=== PATIENT | female | born 1985 | race Caucasian/White ===

== ENCOUNTER 2022-07-31 11:49 | Emergency (ER) | payer MEDICAID, SELFPAY ==
[2022-07-31 12:15] VITALS: BP 136/88; PULSE 71; RESP 16; TEMP 36.8; O2SAT 97; BMI 32.3
--- NOTE | 2022-07-31 13:04 | ED.ABDPAIN ---
HPI - Abdominal Pain General Date Seen: 07/31/22 Chief Complaint: Abdominal Pain Stated Complaint: Abdominal pain Time Seen by Provider: 07/31/22 11:54 Source: patient Mode of arrival: ambulatory Limitations: no limitations History of Present Illness HPI narrative: Patient is a 37-year-old female presents here with her sister for evaluation of abdominal pain she described initially in the epigastric region but now has gone to the her lower quadrants also, this came on after she had cowan eggs, she describes almost a cramping burning situation, she did try to go to the bathroom but this did not really help it. Denies any diarrhea there was some nausea but no vomiting common it has improved markedly since when this occurred. Approximately 4 hours ago. He has never before had this, she denies any dysuria frequency or any blood in her urine, she has not been constipated, and does not think she is . Denies no previous abdominal surgery there is no family history of issues took some activated charcoal at home, and this seemed to help it a little bit. MD elicited complaint: abdominal pain Pertinent past history: none Onset (ago): hour(s) Pain Consistency: intermittent and colicky Location: LLQ Severity: moderate Quality: cramping Migration to: no migration Exacerbating factors: eating Relieving factors: medication Associated symptoms: denies other symptoms Related Data Home Medications Medication Instructions Recorded Confirmed No Known Home Medications 07/31/22 07/31/22 Allergies Allergy/AdvReac Type Severity Reaction Status Date / Time No Known Drug Allergies Allergy Verified 07/31/22 12:19 Review of Systems Status of ROS Reports: 10 or more systems reviewed and unremarkable except as noted in History and below PFSH PFS Social History Smoking Status: Never smoker How often do you have a drink containing alcohol: monthly or less AUDIT-C Alcohol total score: 1 Non-prescribed substance use: denies use Exam Narrative: Exam Narrative: Patient is a very nice lady seen and stabilization room 2, she is in no apparent distress speaking to me normally appears to be in no pain. Pupils are equal round reactive to light there is no scleral icterus or redness TMs are normal, oropharynx normal, neck is supple full range of motion no meningismus, chest is clear heart sounds are normal, with no clicks murmurs or gallops, abdomen is soft there is no guarding no significant organomegaly, bowel sounds are normal, no CVA tenderness no hernias, she was all extremities independently well normal neurologic function. Const: Vital Signs, click to edit/add: Vital Signs - 24 hr 07/31/22 12:15 07/31/22 15:12 Temperature 98.3 F Pulse Rate [Pulse Oximeter] 71 71 Respiratory Rate 16 16 Blood Pressure [Ri ght Upper Arm] 136/88 120/75 Pulse Oximetry 97 98 Oxygen Delivery Me thod Room Air Documenting provider has reviewed patient's vital signs: yes Course Course Hospital Course: Discussed with the patient that her CT did not show any acute abnormality, her blood tests are normal, she did get some relief from the GI cocktail along with the Toradol, I believe her pain is more consistent with gastritis. Would like her to try omeprazole a day follow-up primary care. She was comfortable with this plan. Return if worsening Vital Signs Vital signs: Initial Vital Signs Temperature 98.3 F 07/31/22 12:15 Temperature Source Temporal Artery Scan 07/31/22 12:15 Pulse Rate 71 07/31/22 12:15 Respiratory Rate 16 07/31/22 12:15 Blood Pressure 136/88 07/31/22 12:15 Blood Pressure Mean 104 07/31/22 12:15 Blood Pressure Position Supine 07/31/22 12:15 Pulse Oximetry 97 07/31/22 12:15 Vital Signs Temperature 98.3 F 07/31/22 12:15 Pulse Rate 71 07/31/22 12:15 Respiratory Rate 16 07/31/22 12:15 Blood Pressure 136/88 07/31/22 12:15 Pulse Oximetry 97 07/31/22 12:15 Temperature 98.3 F 07/31/22 12:15 Pulse Rate 71 07/31/22 15:12 Respiratory Rate 16 07/31/22 15:12 Blood Pressure 120/75 07/31/22 15:12 Pulse Oximetry 98 07/31/22 15:12 Oxygen Delivery Method 07/31/22 15:12 MDM - Abdominal Pain MDM Narrative Medical decision making narrative: During the evaluation of this patient I considered multiple differential diagnosis including life-threatening differentials which are appendicitis, aortic aneurysm, mesenteric ischemia, bowel perforation, ectopic , volvulus and bowel obstruction, other differential diagnosis include but are not limited to inflammatory bowel disease, cholecystitis, pancreatitis, hepatitis, gastritis, GERD, diverticulitis, peptic ulcer disease, pyelonephritis/UTI, renal colic/stone, pelvic inflammatory disease, cervicitis, endometritis, intrauterine , dysfunctional uterine bleeding, ovarian cyst/torsion, spontaneous as well as other etiologies Medical Records Attestation: I reviewed the patient's medical records. Lab Data Attestation: I reviewed the patient's lab results. Labs: Lab Results 07/31/22 07/31/22 07/31/22 Range/Units 13:03 13:03 13:03 WBC 7.34 (4.50-11.00) K/uL RBC 4.50 (4.00-5.20) m/uL Hgb 12.8 (12.0-16.0) gm/dL Hct 39.2 (33.0-51.0) % MCV 87 (80-100) fL MCH 28 (26-34) pg MCHC 33 (32-36) gm/dL RDW Coeff of Joey 13.0 (11.5-15.5) % Plt Count 330 (140-440) K/uL Neut % (Auto) 72.9 H (42.0-72.0) % Lymph % (Auto) 21.0 (20-44) % Sherman % (Auto) 4.6 (0.0-11.0) % Eos % (Auto) 1.1 (0.0-7.0) % Baso % (Auto) 0.3 (0.0-3.0) % Neut # (Auto) 5.40 (1.7-7.0) K/uL Lymph # (Auto) 1.54 (0.90-2.90) K/uL Sherman # (Auto) 0.30 (0.00-0.90) K/UL Eos # (Auto) 0.08 (0.00-0.50) K/uL Baso # (Auto) 0.02 (0.00-0.30) K/uL Abs Immat Gran (auto) 0.01 (0.00-0.30) K/uL Imm/Tot Granulo (auto) 0.1 % Sodium (135-149) mmol/L Potassium (3.6-5.1) mmol/L Chloride (96-114) mmol/L Carbon Dioxide (20-32) mmol/L BUN (5-24) mg/dL Creatinine (0.5-1.5) mg/dL Estimated Creat Clear Estimated GFR ml/min Glucose (60-115) mg/dL Calcium (8.4-10.6) mg/dL Total Bilirubin Cancelled Direct Bilirubin Cancelled AST Cancelled ALT Cancelled Alkaline Phosphatase Cancelled Total Protein Cancelled Albumin Cancelled Amylase (18-89) U/L Lipase Cancelled HCG, Qual (Negative) Urine Color (Yellow) Urine Appearance (Clear) Urine pH (5.0-8.5) Ur Specific [place] (1.000-1.030) Urine Protein (Negative) Urine Glucose (UA) (Negative) Urine Ketones (Negative) Urine Blood (Negative) Urine Nitrite (Negative) Urine Bilirubin (Negative) Urine Urobilinogen (0.2-1.0) Ur Leukocyte Esterase (Negative) Urine RBC (0-2) Urine WBC (0-5) Ur Squamous Epith Cells (None-Few) Urine Bacteria (None) SARS-CoV-2 (PCR) Negative SARS-CoV-2 (Negative) Influenza Type A (PCR) Negative PCR FLU A (Negative) Influenza Type B (PCR) Negative PCR FLU B (Negative) RSV (PCR) Negative PCR RSV (Negative) 07/31/22 07/31/22 Range/Units 13:08 13:30 WBC (4.50-11.00) K/uL RBC (4.00-5.20) m/uL Hgb (12.0-16.0) gm/dL Hct (33.0-51.0) % MCV (80-100) fL MCH (26-34) pg MCHC (32-36) gm/dL RDW Coeff of Joey (11.5-15.5) % Plt Count (140-440) K/uL Neut % (Auto) (42.0-72.0) % Lymph % (Auto) (20-44) % Sherman % (Auto) (0.0-11.0) % Eos % (Auto) (0.0-7.0) % Baso % (Auto) (0.0-3.0) % Neut # (Auto) (1.7-7.0) K/uL Lymph # (Auto) (0.90-2.90) K/uL Sherman # (Auto) (0.00-0.90) K/UL Eos # (Auto) (0.00-0.50) K/uL Baso # (Auto) (0.00-0.30) K/uL Abs Immat Gran (auto) (0.00-0.30) K/uL Imm/Tot Granulo (auto) % Sodium 140 (135-149) mmol/L Potassium 4.2 (3.6-5.1) mmol/L Chloride 108 (96-114) mmol/L Carbon Dioxide 26 (20-32) mmol/L BUN 13 (5-24) mg/dL Creatinine 0.7 (0.5-1.5) mg/dL Estimated Creat Clear 104.01 Estimated GFR 115 ml/min Glucose 105 (60-115) mg/dL Calcium 8.8 (8.4-10.6) mg/dL Total Bilirubin 0.6 Direct Bilirubin 0.1 AST 24 ALT 20 Alkaline Phosphatase 71 Total Protein 7.3 Albumin 4.6 Amylase 57 (18-89) U/L Lipase 50 HCG, Qual Negative (Negative) Urine Color Yellow (Yellow) Urine Appearance Clear (Clear) Urine pH 7.5 (5.0-8.5) Ur Specific [place] 1.020 (1.000-1.030) Urine Protein Negative (Negative) Urine Glucose (UA) Negative (Negative) Urine Ketones Negative (Negative) Urine Blood Negative (Negative) Urine Nitrite Negative (Negative) Urine Bilirubin Negative (Negative) Urine Urobilinogen 0.2 (0.2-1.0) Ur Leukocyte Esterase Negative (Negative) Urine RBC 0-2 (0-2) Urine WBC 0-2 (0-5) Ur Squamous Epith Cells Few (None-Few) Urine Bacteria None (None) SARS-CoV-2 (PCR) (Negative) Influenza Type A (PCR) (Negative) Influenza Type B (PCR) (Negative) RSV (PCR) (Negative) Imaging Data CT scan - abdomen: Attestation: I have reviewed the pertinent imaging results. My impression: No acute abnormality CT Radiologist's impression: Patient: TORI PATEL Facility:?[facility] Patient ID:?[id number] Site Patient ID:?[id number]. Site :?[id number] Study:?CT Abdomen/Pelvis W/IV-07/31/2022 3:10:53 PM Ordering Physician:?Myra Douglas Final Report: INDICATION: Epigastric lower left quadrant abdomen pain. TECHNIQUE: CT abdomen and pelvis acquired with 98 mL Isovue 370 IV contrast. Coronal and sagittal reformats were generated. COMPARISON: None. FINDINGS: Lower chest: Unremarkable. Liver: Unremarkable. Gallbladder and bile ducts: Unremarkable. No stones or inflammation. No biliary dilation. Spleen: Unremarkable. Pancreas: Unremarkable. Adrenal glands: Unremarkable. No nodules. Kidneys and Ureters: Unremarkable. No suspicious masses, stones, or hydronephrosis. Lymph Nodes and Retroperitoneum: Unremarkable. Vasculature: Unremarkable. GI tract: Unremarkable. Normal in caliber. Normal appendix. Peritoneum/Abdominal Wall: Unremarkable. No free air or free fluid. Pelvic Viscera: Unremarkable. Bladder: Unremarkable. Bones: Unremarkable for age. IMPRESSION: No significant CT abnormality or findings to explain the cause of the patient`s symptoms. The appendix is normal. Please note that all CT scans at this facility use dose modulation, iterative reconstruction, and/or weight-based dosing when appropriate to reduce radiation dose to as low as reasonably achievable. Dictated by Haile Goff MD @ 07/31/2022 3:48:26 PM (Electronic Signature) Discharge Plan Discharge Clinical Impression: Abdominal pain Patient Disposition: Home w/ Parent or Adult Condition: Stable Instructions: Abdominal Pain (ED) Additional Instructions: Home rest use of Prilosec 20 mg daily, I would take this for the next 30 days. I can give you prescription but is cheapest if he go to [place] are [employer] and by 30 days worth of it. Recommend avoiding caffeine or caffeinated beverages, you may use antacids with the Prilosec, follow up here if signs and symptoms of worsening such as vomiting, bleeding, or other issues, follow-up with primary care within the next 10 days to consider other diagnosis is, or possibly endoscopy if no improvement. Prescriptions: No Action No Known Home Medications Follow Up/Referrals: Provider,Not a Local [Primary Care Provider] - Stand Alone Forms: [employer] Info Instructions
[2022-07-31] MEDS: 0.9 % SODIUM CHLORIDE 1000 ml 1,000 ML IV (13:09)
--- NOTE | 2022-07-31 13:12 | ED.NURSE ---
pt resting in bed, talking with sister, drinking water.
--- NOTE | 2022-07-31 13:14 | ED.NURSE ---
taxi proprietor swab for covid, pt up to br independent, urine collected and sent to lab.
[2022-07-31 13:29] LABS: Basophils Absolute Auto 0.02 K/uL (0.00-0.30); Basophils Percent Auto 0.3 % (0.0-3.0); Eosinophils Absolute Auto 0.08 K/uL (0.00-0.50); Eosinophils Percent Auto 1.1 % (0.0-7.0); Hematocrit 39.2 % (33.0-51.0); Hemoglobin* 12.8 gm/dL (12.0-16.0); Immature Granulocytes Abs Auto 0.01 K/uL (0.00-0.30); Immature Granulocytes Pct Auto 0.1 %; Lymphocytes Absolute Auto 1.54 K/uL (0.90-2.90); Mean Corpuscular HGB Conc 33 gm/dL (32-36); Mean Corpuscular Hemoglobin 28 pg (26-34); Mean Corpuscular Volume 87 fL (80-100); Monocytes Percent Auto 4.6 % (0.0-11.0); Neutrophils Percent Auto 72.9 % (42.0-72.0); Platelet Count* 330 K/uL (140-440); White Blood Count* 7.34 K/uL (4.50-11.00)
[2022-07-31 13:34] LABS: Appearance Urine Clear (Clear); Bilirubin Urine Negative (Negative); Blood Urine Negative (Negative); Color Urine Yellow (Yellow); Glucose Urine Negative (Negative); Ketones Urine Negative (Negative); Leukocyte Esterase Urine Negative (Negative); Nitrite Urine Negative (Negative); Protein Urine Negative (Negative); Urobilinogen Urine 0.2 (0.2-1.0); pH Urine 7.5 (5.0-8.5)
[2022-07-31 13:46] LABS: Slide Review Reflex No
[2022-07-31 13:46] LABS: Albumin* 4.6 g/dL (3.3-5.0); Chloride* 108 mmol/L (96-114)
[2022-07-31 13:47] LABS: Potassium* 4.2 mmol/L (3.6-5.1); Sodium* 140 mmol/L (135-149)
[2022-07-31 13:49] LABS: Amylase* 57 U/L (18-89); Aspartate Amino Transferase* 24 U/L (12-35); Bilirubin Direct* 0.1 mg/dL (0.0-0.5); Bilirubin Total* 0.6 mg/dL (0.1-1.5); Blood Urea Nitrogen* 13 mg/dL (5-24); Carbon Dioxide* 26 mmol/L (20-32); Creatinine* 0.7 mg/dL (0.5-1.5); Est. Creatinine Clearance* 104.01; Estimated Glomerular Filt Rate 115 ml/min; Glucose* 105 mg/dL (60-115); Total Protein* 7.3 g/dL (6.0-8.3)
[2022-07-31 13:50] LABS: Alanine Aminotransferase* 20 U/L (4-35); Alkaline Phosphatase* 71 U/L (40-150); Calcium* 8.8 mg/dL (8.4-10.6); Lipase* 50 U/L (23-300)
[2022-07-31 14:04] LABS: PCR FLU A Negative PCR FLU A (Negative); PCR FLU B Negative PCR FLU B (Negative); PCR RSV Negative PCR RSV (Negative)
[2022-07-31 14:21] LABS: SARS PCR* Negative SARS-CoV-2 (Negative)
[2022-07-31 14:28] LABS: RBC Urine 0-2 (0-2); Squamous Epithelial Cell Urine Few (None-Few); WBC Urine 0-2 (0-5)
--- NOTE | 2022-07-31 14:37 | CRLHL7_ITS ---
For Patients: As a result of the Century Cures Act, medical imaging exams and procedure reports are released immediately into your electronic medical record. You may view this report before your referring provider. If you have questions, please contact your health care provider. INDICATION: Epigastric lower left quadrant abdomen pain. TECHNIQUE: CT abdomen and pelvis acquired with 98 mL Isovue 370 IV contrast. Coronal and sagittal reformats were generated. COMPARISON: None. FINDINGS: Lower chest: Unremarkable. Liver: Unremarkable. Gallbladder and bile ducts: Unremarkable. No stones or inflammation. No biliary dilation. Spleen: Unremarkable. Pancreas: Unremarkable. Adrenal glands: Unremarkable. No nodules. Kidneys and Ureters: Unremarkable. No suspicious masses, stones, or hydronephrosis. Lymph Nodes and Retroperitoneum: Unremarkable. Vasculature: Unremarkable. GI tract: Unremarkable. Normal in caliber. Normal appendix. Peritoneum/Abdominal Wall: Unremarkable. No free air or free fluid. Pelvic Viscera: Unremarkable. Bladder: Unremarkable. Bones: Unremarkable for age. IMPRESSION: No significant CT abnormality or findings to explain the cause of the patient`s symptoms. The appendix is normal. Please note that all CT scans at this facility use dose modulation, iterative reconstruction, and/or weight-based dosing when appropriate to reduce radiation dose to as low as reasonably achievable. Dictated by Haile Goff MD @ 07/31/2022 3:48:26 PM (Electronically Signed)
[2022-07-31 14:38] LABS: HCG Qualitative* Negative (Negative)
[2022-07-31] MEDS: KETOROLAC 30 MG/ML inj IVP (15:06)
[2022-07-31] MEDS: GI COCKTAIL (VISC LIDO/ANTACID) 30 ML PO (15:08)
[2022-07-31 15:12] VITALS: BP 120/75; PULSE 71; RESP 16; O2SAT 98
== END 2022-07-31 16:50 | disposition home or self-care (01) ==
PROVIDERS: Emergency Provider Family Medicine
DX: R10.9 Unspecified abdominal pain (principal)
CPT/HCPCS: 36415; 74177; 80048; 80076; 81001; 82150; 83690; 84703; 85025; 87502; 87634; 87635; 96361; 96374; 99284; 99285; A9270; J1885; J7030; Q9967